=== PATIENT | male | born 2000 | race Two or more races ===

== ENCOUNTER 2019-08-17 21:42 | Emergency (ER) | payer BC ==
[~2019-08-17] VITALS: Ht 170.2 cm; Wt 74.8 kg
--- NOTE | 2019-08-17 22:15 | NUR ---
CALLED PT IN WAITING ROOM. NO RESPONSE.
--- NOTE | 2019-08-17 22:19 | NUR ---
CALLED PT IN WAITING ROOM. NO RESPONSE.
[2019-08-17 22:24] VITALS: BP 132/68
[2019-08-17] MEDS ORDERED: LIDOCAINE HCL/MPF 1% 30 ML VIAL IJ ONE (22:59)
[2019-08-17] MEDS ORDERED: BACI/NEOM/POLY B OINT PKT 1 UDPKT PACKET TP ONE (23:00)
[2019-08-17] MEDS ORDERED: LIDOCAINE 2% 20 ML MDV TP ONE (23:00)
[2019-08-17] MEDS ORDERED: TDAP [DIPH/PERTUSSIS/TET] 0.5 ML VIAL IM ONE (23:00)
[2019-08-18] MEDS ORDERED: TDAP [DIPH/PERTUSSIS/TET] 0.5 ML VIAL IM ONE (01:11)
== END 2019-08-18 01:18 | disposition home or self-care (01) ==
LOC: ER 21:47
DX: S61.411A Laceration without foreign body of right hand, initial encounter (principal); W26.0XXA Contact with knife, initial encounter; Y93.89 Activity, other specified; Y92.89 Other specified places as the place of occurrence of the external cause; Y99.8 Other external cause status
CPT/HCPCS: 12001; 90471; 90715; 99283; J3490